=== PATIENT | male | born 1960 | race Caucasian/White ===

== ENCOUNTER 2018-03-10 13:27 | Outpatient (CLI) | payer OTHER | END 2018-03-10 13:28 | disposition home or self-care (01) | LOC: SC 13:27 | PROVIDERS: ATTEND Internal Medicine Pulmonary Disease | DX: G47.33 Obstructive sleep apnea (adult) (pediatric) (principal); E66.9 Obesity, unspecified; Z68.33 Body mass index [BMI] 33.0-33.9, adult | CPT/HCPCS: 99203; 99212 ==

== ENCOUNTER 2018-05-01 20:32 | Outpatient (CLI) | payer OTHER | END 2018-05-01 20:33 | disposition home or self-care (01) | LOC: SC 20:32 | PROVIDERS: ATTEND Internal Medicine Pulmonary Disease | DX: G47.33 Obstructive sleep apnea (adult) (pediatric) (principal) | CPT/HCPCS: 95810 ==

== ENCOUNTER 2018-05-27 15:44 | Outpatient (CLI) | payer OTHER | END 2018-05-27 15:45 | disposition home or self-care (01) | LOC: SC 15:44 | PROVIDERS: ATTEND Nurse Practitioner Family | DX: R06.83 Snoring (principal); R53.83 Other fatigue | CPT/HCPCS: 99212; 99214 ==

== ENCOUNTER 2019-01-31 15:20 | Emergency (ER) | payer OTHER ==
--- NOTE | 2019-01-31 15:58 | ED Physician Documentation ---
PD HPI UPPER EXT INJURY - Stated complaint Stated Complaint: RT SHOULDER PX - Chief complaint Chief Complaint: Ext Problem - History obtained from History obtained from: Patient - History of Present Illness Location: Right, Shoulder Type of injury: No: Fall, Twist, Blunt / blow, Penetrating / stab / GSW, Laceration, Puncture wound, Foreign body, Crush, Burn, Other Timing - onset: How many days ago (3-4) Timing - duration: Days Timing - details: Gradual onset Pain level now: 7 Improved by: Rest, Meds Worsened by: Moving Associated symptoms: No: Weakness, Numbness, Tingling, Swelling, Discolored Similar symptoms before: No diagnosis Recently seen: Not recently seen - Additonal information Additional information: This a 58-year-old man who presents with complaints that he is having pain in his right shoulder and behind the right right shoulder blade as well as down the lateral aspect of the right arm for the past 3 to 4 days. He says he has a similar pain about a year ago but he could not specify any specific injury at that time he did not go in and have it evaluated and it just got better. He cam e in today because his "never been this extreme". He took Motrin last night for it as well as Tylenol but the pain today is a 7 out of 10 in its worse to move it. He is left-handed. He denies numbness or tingling down into the hand. He does have a history of hypertension, diabetes and elevated cholesterol. Denies use of insulin. Patient did not reported that he came in today because he was c oncerned that this could be heart related because he is been under a lot of stress. In addition to that he quit taking his omeprazole trying to wean himself off and he is been experiencing some chest pain substernal that he thought might be his heartburn but he took his omeprazole and it did not completely go away and it had him concerned enough to come in and be evaluated to make sure that this pain was not related to a heart attack. Review of Systems Constitutional: denies: Fever Cardiac: reports: Chest pain / pressure (Like previous heartburn). denies: Pedal edema Respiratory: reports: Dyspnea. denies: Cough GI: denies: Vomiting Skin: denies: Rash Musculoskeletal: reports: Extremity pain Neurologic: denies: Generalized weakness, Focal weakness, Numbness, Near syncope, Syncope PD PAST MEDICAL HISTORY - Past Medical History Cardiovascular: Hypertension, High cholesterol Respiratory: Sleep apnea Endocrine/Autoimmune: Type 2 diabetes GI: GERD, Colon polyps : None HEENT: None Psych: None Musculoskeletal: Osteoarthritis Derm: None - Past Surgical History Past Surgical History: No General: Cholecystectomy, Colonoscopy - Present Medications Home Medications: Ambulatory Orders Medication Instructions Recorded Confirmed Lisinopril 20 mg PO DAILY 11/21/14 01/25/16 Metformin HCl 500 mg PO BID 11/21/14 01/25/16 Omeprazole 20 mg PO DAILY 11/21/14 01/25/16 Simvastatin 20 mg PO DAILY 11/21/14 01/25/16 - Allergies Allergies/Adverse Reactions: Allergies Allergy/AdvReac Type Severity Reaction Status Date / Time No Known Drug Allergies Allergy Verified 01/31/19 15:24 - Social History Does the pt smoke?: No Smoking Status: Never smoker Does the pt drink ETOH?: No Does the pt have substance abuse?: No - Immunizations Immunizations are current?: No Immunizations: TDAP >10years/unknown - POLST Patient has POLST: No PD ED PE NORMAL - Vitals Vital signs reviewed: Yes - General General: Alert and oriented X 3, No acute distress, Well developed/nourished - HEENT HEENT: Atraumatic - Neck Neck: No JVD - Cardiac Cardiac: RRR, No murmur, Strong equal pulses - Respiratory Respiratory: No respiratory distress - Abdomen Abdomen: Normal bowel sounds - Back Back: Other (There is some tenderness along the medial border of the right scapula. No palpable knot.) - Derm Derm: Normal color, Warm and dry, No rash - Extremities Extremities: No deformity, Other (Patient has some limitation in internal rotation on the right shoulder compared to the left. Otherwise he is able to abduct and flex the shoulder. He begins to have pain at about 90 degrees. Sensation is intact to light touch down the right arm. 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 versus 5 out of 5 on the left (pt is L handed).) - Neuro Neuro: Alert and oriented X 3, No motor deficit, No sensory deficit - Psych Psych: Normal mood, Normal affect Results - Vitals Vitals: Vital Signs - 24 hr 01/31/19 15:24 Temperature 36.7 C Heart Rate 66 Respiratory 16 Rate Blood Pressure 144/81 H O2 Saturation 95 Oxygen O2 Source Room air - EKG (time done) 1615 Rate: Rate (enter#) (60) Rhythm: NSR Intervals: Other (Narrow QRS) Ischemia: Q waves (III and aVF), T wave inversion (III) Compare to prior EKG: Old EKG unavailable Computer interpretation: Disagree with computer - Labs Labs: Laboratory Tests 01/31/19 01/31/19 01/31/19 16:34 16:34 16:34 WBC 5.7 RBC 4.78 Hgb 13.8 L Hct 42.7 MCV 89.3 MCH 28.9 MCHC 32.3 RDW 12.6 Plt Count 214 MPV 10.9 Neut # (Auto) 3.3 Lymph # (Auto) 1.8 [place] # (Auto) 0.5 Eos # (Auto) 0.1 Baso # (Auto) 0.1 Absolute Nucleated RBC 0.00 Nucleated RBC % 0.0 Sodium 141 Potassium 4.0 Chloride 107 Carbon Dioxide 25 Anion Gap 9.0 BUN 11 Creatinine 0.6 Estimated GFR (MDRD) 138 Glucose 239 H Calcium 9.1 Troponin I High Sens 3.6 PD MEDICAL DECISION MAKING - ED course Complexity details: reviewed results, d/w patient ED course: My initial impression was that this pain was related to rotator cuff injury, however as I was discussing with that with the patient he brought up the fact that he is been feeling very stressed and having this substernal tightness that he thought could be his heartburn but potentially not. He does have risk factors being a diabetic with high blood pressure and high cholesterol so the decision was made to get an EKG and a troponin. 1734: The patient's EKG is normal and the troponin is negative. This was discussed with him and he feels reassured. He has a follow-up appointment his primary care provider on the eighth and will discuss the shoulder pain with her at that time. Departure - Departure Disposition: 01 Home, Self Care Clinical Impression: Tendinopathy of right shoulder Condition: Good Instructions: ED Tendinitis Rotator Cuff Follow-Up: Fei Zayas DO [Primary Care Provider] - Comments: May continue to use ibuprofen or Tylenol for the pain. Avoid activities that worsen the pain such as lifting or twisting the shoulder. Follow-up with your primary care provider about further management and work-up.
[2019-01-31 16:39] LABS: BASOPHILS # (AUTO) 0.1 10^3/uL (0.0-0.1); BASOPHILS % (AUTO) 0.9 %; EOSINOPHILS # (AUTO) 0.1 10^3/uL (0.0-0.7); EOSINOPHILS % (AUTO) 1.4 %; HGB - HEMOGLOBIN 13.8 g/dL (14.0-18.0); LYMPHOCYTES # (AUTO) 1.8 10^3/uL (1.5-3.5); LYMPHOCYTES % (AUTO) 31.4 %; MEAN CORPUSCULAR HEMOGLOBIN 28.9 pg (27.0-31.0); MEAN CORPUSCULAR HGB CONC 32.3 g/dL (32.0-36.0); MEAN CORPUSCULAR VOLUME 89.3 fL (80.0-94.0); MEAN PLATELET VOLUME 10.9 fL (7.4-11.4); MONOCYTES # (AUTO) 0.5 10^3/uL (0.0-1.0); MONOCYTES % (AUTO) 7.9 %; NEUTROPHILS # (AUTO) 3.3 10^3/uL (1.5-6.6); NEUTROPHILS % (AUTO) 58.1 %; PLT - PLATELET COUNT 214 10^3/uL (130-450); RED BLOOD COUNT 4.78 10^6/uL (4.70-6.10); RED CELL DISTRIBUTION WIDTH 12.6 % (12.0-15.0); WHITE BLOOD COUNT 5.7 x10^3/uL (4.8-10.8)
[2019-01-31 16:48] LABS: CALCIUM 9.1 mg/dL (8.5-10.3); CREATININE 0.6 mg/dL (0.6-1.2)
[2019-01-31 17:46] VITALS: BP 134/82
== END 2019-01-31 17:46 | disposition home or self-care (01) ==
LOC: ED 15:20
DX: M75.91 Shoulder lesion, unspecified, right shoulder (principal); R07.89 Other chest pain; K21.9 Gastro-esophageal reflux disease without esophagitis; I10 Essential (primary) hypertension; E78.00 Pure hypercholesterolemia, unspecified; E11.9 Type 2 diabetes mellitus without complications; Z79.84 Long term (current) use of oral hypoglycemic drugs
CPT/HCPCS: 36415; 80048; 84484; 85025; 93005; 99282; 99283